=== PATIENT | female | born 1995 | race Caucasian/White ===

== ENCOUNTER 2017-07-24 19:11 | Emergency (ER) | payer OTHER ==
[~2017-07-24] VITALS: Ht 157.5 cm; Wt 66.4 kg
[2017-07-24 19:23] VITALS: BP 131/80
== END 2017-07-24 21:26 | disposition home or self-care (01) ==
LOC: ED 21:05
DX: H66.93 Otitis media, unspecified, bilateral (principal); J31.0 Chronic rhinitis
CPT/HCPCS: 99282